=== PATIENT | male | born 1995 | race Two or more races ===

== ENCOUNTER 2018-11-07 02:00 | Emergency (ER) | payer SELFPAY ==
[~2018-11-07] VITALS: Ht 180.3 cm; Wt 75.0 kg
--- NOTE | 2018-11-07 02:13 | NUR ---
23 Y/O MALE BIB [facility] AFTER BEING FOUND OUTSIDE A BAR VOMITING, THEN PASSED OUT. SECURITY CALLED EMS TO TRANSPORT PT. EMS REPORTS THE PT WAS OUTSIDE BAR, COVERED IN VOMIT. PT AROUSES TO VERBAL STIMULI AND TOUCH, CONFUSED TO PLACE. EMS ESTABLISHED AN IV AND ADMINISTERED 4MG OF ZOFRAN WITH 250ML OF NS. ALL VITALS STABLE UPON ARRIVAL. WILL CONTINUE TO MONITOR.
--- NOTE | 2018-11-07 02:45 | NUR ---
REPORT RECEIVED FROM SHAMEKA MARLOW WILL CONTINUE TO MONITOR.
--- NOTE | 2018-11-07 02:57 | NUR ---
PT SLEEPING IN [facility]. RESPS EVEN AND UNLABORED. BP/SPO2 MONITORS IN PLACE. CALL LIGHT WITHIN REACH.
--- NOTE | 2018-11-07 03:54 | NUR ---
PT STILL SLEEPING IN [facility]. RESPS EVEN AND UNLABORED. CP/SPO2 MONITORS IN PLACE. CALL LIGHT WITHIN REACH.
[2018-11-07 04:28] VITALS: BP 95/37
--- NOTE | 2018-11-07 05:36 | NUR ---
PT GIVEN DC INSTRUCTIONS. PT AMB TO DC WITH STEADY GAIT. PT'S AOX4. RESPS EVEN AND UNLABORED. NO ACUTE DISTRESS AT DC.
== END 2018-11-07 05:37 | disposition home or self-care (01) ==
LOC: ED 05:30
DX: F10.129 Alcohol abuse with intoxication, unspecified (principal); F17.200 Nicotine dependence, unspecified, uncomplicated
CPT/HCPCS: 99283